=== PATIENT | male | born 1945 | race Caucasian/White ===

== ENCOUNTER 2017-09-24 07:39 | Inpatient (IN) | payer MEDICARE, OTHER, SELFPAY ==
[~2017-09-24] VITALS: Ht 177.8 cm; Wt 82.5 kg
[2017-09-24] MEDS ORDERED: ALBUTEROL/IPRATROPIUM 2.5MG/0.5MG, 3 ML ONE ×2 (07:54→08:39)
[2017-09-24] MEDS ORDERED: CARV6.2512 PO (07:57)
[2017-09-24] MEDS ORDERED: [UNRECOGNIZED DRUG - CODE] PO (07:57)
[2017-09-24] MEDS ORDERED: ALBU2.5V11 NEB (07:57)
[2017-09-24] MEDS ORDERED: TRAZ50TA18 PO (07:57)
[2017-09-24] MEDS ORDERED: ESOM20CA PO (07:57)
[2017-09-24] MEDS ORDERED: methylPREDNISolone SOD SUCC 125 MG/2 ML ONE (08:21)
[2017-09-24] MEDS ORDERED: ALBUTEROL/IPRATROPIUM 2.5MG/0.5MG, 3 ML NPPB SCH (08:30)
[2017-09-24] MEDS ORDERED: SODIUM CHLORIDE FLUSH 10ML SYR IVF ONE (08:30)
[2017-09-24] MEDS ORDERED: methylPREDNISolone SOD SUCC 125 MG/2 ML IVP ONE (08:30)
[2017-09-24 08:42] LABS: HEMATOCRIT 44.9 % (39.2-51.8); WHITE BLOOD COUNT 10.1 x10^3/uL (3.4-10)
[2017-09-24 08:55] LABS: BLOOD UREA NITROGEN 13 mg/dL (7-18)
[2017-09-24 08:59] LABS: IS PT STATUS REG ER OR PRE ER? YES
[2017-09-24] MEDS ORDERED: LORazepam 2 MG/ML, 1ML ONE (09:15)
[2017-09-24] MEDS ORDERED: LORazepam 2 MG/ML, 1ML IVPush ONE (09:30)
[2017-09-24] MEDS ORDERED: OMNIPAQUE 350 MG/ML, 100ML BOTTLE ONE (10:16)
[2017-09-24] MEDS ORDERED: SODIUM CHLORIDE FLUSH 10ML SYR IVF PRN (12:00)
[2017-09-24 12:31] VITALS: BP 101/57
[2017-09-24] MEDS ORDERED: NITROGLYCERIN 0.4 MG BOTTLE (25 TABS) SL PRN (13:00)
[2017-09-24] MEDS ORDERED: ENALAPRILAT 1.25 MG/ML, 2ML IVPush PRN (13:00)
[2017-09-24] MEDS ORDERED: DOCUSATE 100 MG CAPSULE PO PRN (13:00)
[2017-09-24] MEDS ORDERED: BISACODYL 10 MG SUPP PR PRN (13:00)
[2017-09-24] MEDS ORDERED: POLYETHYLENE GLYCOL 17 GM PACKET PO PRN (13:00)
[2017-09-24] MEDS ORDERED: morphine SULFATE 10 MG/ML, 1ML IVPush PRN (13:00)
[2017-09-24] MEDS ORDERED: ONDANSETRON 2MG/ML, 2ML IVPush PRN (13:00)
[2017-09-24] MEDS ORDERED: HYDROcodone/APAP 5/325 TABLET PO PRN (13:00)
[2017-09-24] MEDS ORDERED: LABETALOL 5MG/ML, 20ML IVPush PRN (13:00)
[2017-09-24] MEDS ORDERED: ACETAMINOPHEN 325 MG TABLET PO PRN (13:00)
[2017-09-24] MEDS ORDERED: ALBUTEROL/IPRATROPIUM 2.5MG/0.5MG, 3 ML NPPB PRN (13:30)
[2017-09-24 13:49] LABS: ABG COLLECTION SITE RIGHT BRACHIAL
[2017-09-24] MEDS ORDERED: THEO300T9 PO (13:59)
[2017-09-24] MEDS ORDERED: PNEUMOCOCCAL 23 VACCINE IM-VACC ONE (14:00)
[2017-09-24] MEDS ORDERED: FLU VACC QS2017-18 (36MOS+) UP/PF 0.5 ML IM-VACC ONE (14:00)
[2017-09-24] MEDS: methylPREDNISolone SOD SUCC 125 MG/2 ML IVPush SCH ×2 (14:02→20:48)
[2017-09-24] MEDS: ENOXAPARIN 40 MG/0.4 ML SQ SCH (14:02)
[2017-09-24 14:27] LABS: ABG COLLECTION SITE LEFT RADIAL; COLLATERAL CIRCULATION TESTING NORMAL
[2017-09-24 14:42] LABS: IS PT STATUS REG ER OR PRE ER? NO
[2017-09-24] MEDS: ALBUTEROL/IPRATROPIUM 2.5MG/0.5MG, 3 ML NPPB SCH ×2 (15:00→19:30)
[2017-09-24] MEDS ORDERED: GABA300C10 PO (17:04)
[2017-09-24 17:19] VITALS: BP 151/76
[2017-09-24] MEDS: THEOPHYLLINE 100 MG CAP.ER.24H PO SCH ×2 (18:00→18:25)
[2017-09-24] MEDS ORDERED: TAMS0.4C2 PO (18:43)
[2017-09-24] MEDS ORDERED: FLUO20CA8 PO (18:43)
[2017-09-24] MEDS ORDERED: SIMV20TA3 PO (18:43)
[2017-09-24] MEDS ORDERED: OMEP-110 PO (18:43)
[2017-09-24 19:09] VITALS: BP 128/76
[2017-09-24] MEDS: GABAPENTIN 100 MG CAPSULE PO SCH (20:46)
[2017-09-24] MEDS: FAMOTIDINE 20 MG TABLET PO SCH (20:46)
[2017-09-24] MEDS ORDERED: FLUOXETINE 20 MG/5 ML ORAL SOL PO SCH (21:00)
[2017-09-24] MEDS ORDERED: FLUOXETINE 20 MG CAPSULE PO SCH (21:00)
[2017-09-24] MEDS ORDERED: SIMVASTATIN 20 MG TABLET PO SCH (21:00)
[2017-09-24 21:06] LABS: IS PT STATUS REG ER OR PRE ER? NO
[2017-09-25 02:25] VITALS: BP 117/68
[2017-09-25] MEDS: ALBUTEROL/IPRATROPIUM 2.5MG/0.5MG, 3 ML NPPB SCH ×4 (02:28→14:45)
[2017-09-25] MEDS: methylPREDNISolone SOD SUCC 125 MG/2 ML IVPush SCH ×3 (03:37→14:11)
[2017-09-25 05:18] LABS: HEMATOCRIT 41.4 % (39.2-51.8); HEMOGLOBIN 13.9 g/dL (13.7-18.0); WHITE BLOOD COUNT 12.9 x10^3/uL (3.4-10)
[2017-09-25 05:26] LABS: ASPARTATE AMINO TRANSFERASE 19 U/L (15-37); BLOOD UREA NITROGEN 21 mg/dL (7-18)
[2017-09-25] MEDS ORDERED: ASPIRIN 325 MG TABLET EC PO SCH (06:00)
[2017-09-25 07:45] VITALS: BP 127/66
[2017-09-25] MEDS ORDERED: TAMSULOSIN 0.4 MG CAP.ER.24H PO SCH (09:00)
[2017-09-25] MEDS ORDERED: CARVEDILOL 6.25 MG TABLET PO SCH (09:00)
[2017-09-25] MEDS: FAMOTIDINE 20 MG TABLET PO SCH (09:54)
[2017-09-25] MEDS: GABAPENTIN 100 MG CAPSULE PO SCH (09:54)
[2017-09-25] MEDS: THEOPHYLLINE 100 MG CAP.ER.24H PO SCH (09:54)
[2017-09-25] MEDS: ENOXAPARIN 40 MG/0.4 ML SQ SCH (13:00)
[2017-09-25 13:09] VITALS: BP 122/61
[2017-09-25] MEDS ORDERED: PRED10TA PO (14:50)
== END 2017-09-25 15:52 | disposition home or self-care (01) | DRG 189 ==
LOC: ED 11:07 → EDIP 11:33 → 5SO 12:25
PROVIDERS: ADMIT Family Medicine; ATTEND Family Medicine
DX: J96.21 Acute and chronic respiratory failure with hypoxia (principal); E87.2 Acidosis; J44.1 Chronic obstructive pulmonary disease with (acute) exacerbation; D72.829 Elevated white blood cell count, unspecified; E78.5 Hyperlipidemia, unspecified; H91.90 Unspecified hearing loss, unspecified ear; I73.9 Peripheral vascular disease, unspecified; K44.9 Diaphragmatic hernia without obstruction or gangrene; K58.9 Irritable bowel syndrome, unspecified; Z66 Do not resuscitate; Z80.42 Family history of malignant neoplasm of prostate; Z83.3 Family history of diabetes mellitus; Z85.46 Personal history of malignant neoplasm of prostate; Z86.718 Personal history of other venous thrombosis and embolism; Z87.891 Personal history of nicotine dependence; Z99.81 Dependence on supplemental oxygen; Z85.830 Personal history of malignant neoplasm of bone
CPT/HCPCS: 36415; 36600; 71010; 71275; 80048; 80053; 81003; 82040; 82803; 83605; 83735; 83880; 84100; 84145; 84443; 84484; 85025; 85610; 85651; 85730; 87040; 90686; 90732; 93005; 94640; 96374; 96375; J1650; J7620; Q9967; J2060; J2930